=== PATIENT | male | born 1960 | race African-American/Black ===

== ENCOUNTER 2017-11-04 09:02 | Day surgery (SDC) | payer MEDICARE, MEDICAID ==
[~2017-11-04] VITALS: Ht 188 cm; Wt 73.5 kg
[~2017-11-04 09:02] MED LIST: ALLOPURINOL100 MG OR; ALLOPURINOL100 MG PO; BACTRIM DS1 TAB PO; CELEBREX200 MG PO; COLCHICINE PO; COLCRYS0.6 MG OR; DOXYCYC MONO100 MG OR; ENALAPRIL5 MG PO; EXCEDRIN PM PO; GOODY S PO; KEFLEX500 MG OR; LOMOTIL2.5 MG PO; LORTAB 10 OR; LORTAB 1010 MG PO; MELOXICAM7.5 MG PO; NO MEDS; OMEPRAZOLE40 MG PO; PROTONIX40 M2 PO; TRAMADOL HCL50 MG PO; [UNRECOGNIZED DRUG - OTHER] PO
[2017-11-04] MEDS ORDERED: PERCOCET 10/31 COMBO PO (15:05)
[2017-11-04 15:40] VITALS: BP 163/98
== END 2017-11-04 13:35 | disposition home or self-care (01) ==
LOC: ORM 09:02
PROVIDERS: ATTEND Orthopaedic Surgery
PROC: 0LQ24ZZ Repair Left Shoulder Tendon, Percutaneous Endoscopic Approach (ICD-10-PCS; principal; 2017-11-04)
PROC: 0LS24ZZ Reposition Left Shoulder Tendon, Percutaneous Endoscopic Approach (ICD-10-PCS; 2017-11-04)
PROC: 0RNK4ZZ Release Left Shoulder Joint, Percutaneous Endoscopic Approach (ICD-10-PCS; 2017-11-04)
DX: M75.122 Complete rotator cuff tear or rupture of left shoulder, not specified as traumatic (principal); M75.52 Bursitis of left shoulder; M94.212 Chondromalacia, left shoulder; S43.432A Superior glenoid labrum lesion of left shoulder, initial encounter; S46.212A Strain of muscle, fascia and tendon of other parts of biceps, left arm, initial encounter; K21.9 Gastro-esophageal reflux disease without esophagitis; I10 Essential (primary) hypertension; M10.9 Gout, unspecified; F17.210 Nicotine dependence, cigarettes, uncomplicated; X58.XXXA Exposure to other specified factors, initial encounter; Z86.73 Personal history of transient ischemic attack (TIA), and cerebral infarction without residual deficits
CPT/HCPCS: J2710

== ENCOUNTER 2018-02-16 10:49 | Emergency (ER) | payer MEDICARE, MEDICAID ==
[~2018-02-16] VITALS: Ht 188 cm; Wt 75.0 kg
[~2018-02-16 10:49] MED LIST changes: +PERCOCET 10/31 COMBO PO
[2018-02-16 11:55] LABS: HEMATOCRIT 44.6 % (39.0-50.0); HEMOGLOBIN 14.2 g/dl (14.0-18.0); IMMATURE GRANULOCYTES 0.3 % (0.0-1.0); MEAN CELL VOLUME 90.5 fL CALC (80.0-100.0); MEAN CORPUSCULAR HGB 28.8 pG CALC (26.0-32.0); MEAN CORPUSCULAR HGB CONC 31.8 g/L CALC (32.0-36.0); NEUT# 4.14 thou/uL (1.82-7.42); RED BLOOD COUNT 4.93 mill/uL (4.70-6.10); RED CELL DISTRI WIDTH 13.4 % (11.5-15.5)
[2018-02-16 12:03] LABS: ANION GAP 17 (6-22 (CALC)); BUN 22 mg/dL (9-20); BUN/CREATININE RATIO 18 (12-20 (CALC)); CARBON DIOXIDE 26 mmol/l (22-30); CHLORIDE 106 mmol/l (95-108); CREATININE 1.3 mg/dL (0.7-1.3); GFR 57 ML/MIN (>=60 (CALC)); GFR FOR AFR.AMER. > 60 ML/MIN (>=60 (CALC)); POTASSIUM 4.3 mmol/l (3.5-5.1); SODIUM 145 mmol/l (137-146)
[2018-02-16 13:03] VITALS: BP 152/90
== END 2018-02-16 13:03 | disposition short-term general hospital (02) ==
LOC: ED 10:49
PROVIDERS: Family Medicine
DX: I49.3 Ventricular premature depolarization (principal); I10 Essential (primary) hypertension; R20.2 Paresthesia of skin; R94.31 Abnormal electrocardiogram [ECG] [EKG]; R61 Generalized hyperhidrosis

== ENCOUNTER 2018-12-27 15:24 | Emergency (ER) | payer MEDICARE, MEDICAID ==
[~2018-12-27] VITALS: Ht 188 cm; Wt 74.0 kg
[2018-12-27] MEDS ORDERED: ENALAPRIL20 MG PO (15:53)
[2018-12-27 16:00] VITALS: BP 118/73
== END 2018-12-27 16:00 | disposition home or self-care (01) ==
LOC: ED 15:24
DX: S61.211A Laceration without foreign body of left index finger without damage to nail, initial encounter (principal); I10 Essential (primary) hypertension; W29.3XXA Contact with powered garden and outdoor hand tools and machinery, initial encounter; Y93.H2 Activity, gardening and landscaping; Y92.007 Garden or yard of unspecified non-institutional (private) residence as the place of occurrence of the external cause

== ENCOUNTER 2019-01-02 09:51 | Emergency (ER) | payer MEDICARE ==
[~2019-01-02] VITALS: Ht 188 cm; Wt 90.0 kg
[~2019-01-02 09:51] MED LIST changes: +ENALAPRIL20 MG PO
[2019-01-02] MEDS ORDERED: ASPIRIN 8181 MG PO (10:15)
[2019-01-02 10:16] LABS: HEMOGLOBIN 15.3 g/dl (14.0-18.0); IMMATURE GRANULOCYTES 0.2 % (0.0-5.0); MEAN CORPUSCULAR HGB 29.3 pG CALC (26.0-32.0); MEAN CORPUSCULAR HGB CONC 32.6 g/L CALC (32.0-36.0); NEUT# 6.24 thou/uL (1.82-7.42); RED BLOOD COUNT 5.22 mill/uL (4.70-6.10); RED CELL DISTRI WIDTH 13.3 % (11.5-15.5)
[2019-01-02 10:27] LABS: ANION GAP 16 (6-22 (CALC)); BUN 19 mg/dL (9-20); BUN/CREATININE RATIO 18 (12-20 (CALC)); CARBON DIOXIDE 25 mmol/l (22-30); CHLORIDE 104 mmol/l (95-108); GFR > 60 ML/MIN (>=60 (CALC)); GFR FOR AFR.AMER. > 60 ML/MIN (>=60 (CALC)); SODIUM 141 mmol/l (137-146)
[2019-01-02 12:02] VITALS: BP 138/98
== END 2019-01-02 12:09 | disposition left against medical advice (07) ==
LOC: ED 09:51
PROVIDERS: Family Medicine
DX: R07.9 Chest pain, unspecified (principal); R94.31 Abnormal electrocardiogram [ECG] [EKG]; I10 Essential (primary) hypertension; F17.200 Nicotine dependence, unspecified, uncomplicated; Z91.19 Patient's noncompliance with other medical treatment and regimen

== ENCOUNTER 2019-03-08 12:40 | Emergency (ER) | payer OTHER, MEDICARE, MEDICAID ==
[~2019-03-08] VITALS: Ht 188 cm; Wt 75.0 kg
[~2019-03-08 12:40] MED LIST changes: +ASPIRIN 8181 MG PO
[2019-03-08] MEDS ORDERED: AMLODIPINE5 MG PO (14:17)
[2019-03-08] MEDS ORDERED: FLEXERIL PO (14:21)
[2019-03-08] MEDS ORDERED: TORADOL PO (14:21)
[2019-03-08 14:25] VITALS: BP 139/74
== END 2019-03-08 14:25 | disposition home or self-care (01) | DRG 552 ==
LOC: ED 12:40
DX: S16.1XXA Strain of muscle, fascia and tendon at neck level, initial encounter (principal); I10 Essential (primary) hypertension; F17.200 Nicotine dependence, unspecified, uncomplicated; V52.5XXA Driver of pick-up truck or van injured in collision with two- or three-wheeled motor vehicle in traffic accident, initial encounter

== ENCOUNTER 2019-09-04 07:59 | Day surgery (SDC) | payer MEDICARE, MEDICAID ==
[~2019-09-04] VITALS: Ht 188 cm; Wt 73.9 kg
[~2019-09-04 07:59] MED LIST changes: +AMLODIPINE5 MG PO; +ENALAPRIL10 MG PO; +FLEXERIL PO; +FLORASTOR250 M1 PO; +NORVASC PO; +TIZANIDINE HCL4 M1 PO; +TORADOL PO
[2019-09-04 08:27] LABS: BARBITURATES NEGATIVE (NEGATIVE); COCAINE NEGATIVE (NEGATIVE); METHADONE NEGATIVE (NEGATIVE); OXCYCODONE NEGATIVE (NEGATIVE); TETRAHYDROCANNABIONOL POSITIVE (NEGATIVE); TRICYLIC ANTIDEPRESSANTS NEGATIVE (NEGATIVE)
[2019-09-04 09:30] LABS: ALBUMIN 4.4 g/dL (3.2-5.0); ALKALINE PHOSPHATASE 53 u/l (38-126); ANION GAP 11 (6-22 (CALC)); BUN 15 mg/dL (9-20); BUN/CREATININE RATIO 15 (12-20 (CALC)); CARBON DIOXIDE 29 mmol/l (22-30); CHLORIDE 103 mmol/l (95-108); GFR > 60 ML/MIN (>=60 (CALC)); GFR FOR AFR.AMER. > 60 ML/MIN (>=60 (CALC)); POTASSIUM 4.1 mmol/l (3.5-5.1); SGOT/AST 23 u/l (17-59); SODIUM 139 mmol/l (137-146); TOTAL PROTEIN 7.2 g/dL (6.3-8.2)
[2019-09-04 09:32] LABS: BILIRUBIN, TOTAL 0.8 mg/dL (0.0-1.4)
[2019-09-04 10:28] VITALS: BP 151/90
== END 2019-09-04 10:56 | disposition home or self-care (01) ==
LOC: ENDO 07:59
PROVIDERS: ATTEND Surgery
PROC: 0DJD8ZZ Inspection of Lower Intestinal Tract, Via Natural or Artificial Opening Endoscopic (ICD-10-PCS; principal; 2019-09-04)
DX: Z12.11 Encounter for screening for malignant neoplasm of colon (principal); I10 Essential (primary) hypertension

== ENCOUNTER 2020-11-20 16:45 | Observation (INO) | payer MEDICARE ==
[~2020-11-20] VITALS: Ht 188 cm; Wt 73.7 kg
--- NOTE | 2020-11-20 16:50 | NUR ---
PT TO ROOM # 15 FOR BEDSIDE TRIAGE
[2020-11-20 17:35] LABS: HEMATOCRIT 47.2 % (39.0-50.0); IMMATURE GRANULOCYTES 0.3 % (0.0-5.0); MEAN CELL VOLUME 87.7 fL CALC (80.0-100.0); MEAN CORPUSCULAR HGB 27.9 pG CALC (26.0-32.0); MEAN CORPUSCULAR HGB CONC 31.8 g/dL CAL (32.0-36.0); NEUT# 6.4 thou/uL (1.82-7.42); RED BLOOD COUNT 5.38 mill/uL (4.70-6.10); RED CELL DISTRI WIDTH 13.6 % (11.5-15.5)
[2020-11-20 17:53] LABS: ACT PARTIAL THROMBO TIME 26.8 SECONDS (20.0-32.5); PROTHROMBIN TIME 9.5 SECONDS (9.0-12.5)
[2020-11-20 17:57] LABS: ALBUMIN 4.7 g/dL (3.2-5.0); ALKALINE PHOSPHATASE 51 u/l (38-126); AMYLASE 92 u/l (30-110); ANION GAP 11 (6-22 (CALC)); BUN 19 mg/dL (8-23); BUN/CREATININE RATIO 16 (12-20 (CALC)); CARBON DIOXIDE 28 mmol/l (22-30); CHLORIDE 102 mmol/l (95-108); CREATININE 1.2 mg/dL (0.7-1.3); ETHYL ALCOHOL 0 mg/dl (0-30); GFR > 60 ML/MIN (>=60 (CALC)); GFR FOR AFR.AMER. > 60 ML/MIN (>=60 (CALC)); LIPASE 71 u/l (23-300); POTASSIUM 4.2 mmol/l (3.5-5.1); SODIUM 136 mmol/l (137-146); TOTAL PROTEIN 8.8 g/dL (6.3-8.2)
[2020-11-20 18:01] LABS: SGOT/AST 51 u/l (19-48)
--- NOTE | 2020-11-20 18:10 | NUR ---
MD AT BEDSIDE TO DISCUSS RESULTS AND POC.
[2020-11-20] MEDS ORDERED: AMLODIPINE BESYL5 MG PO (18:11)
[2020-11-20] MEDS ORDERED: PRAVASTATIN SOD20 MG PO (18:12)
--- NOTE | 2020-11-20 18:17 | NUR ---
SBAR PRINTED TO FLOOR
--- NOTE | 2020-11-20 18:27 | NUR ---
COVID SWAB COLLECTED, ISOLATION PRECAUTIONS INITIATED.
--- NOTE | 2020-11-20 18:47 | NUR ---
REPORT GIVEN TO ANTONY MCKAY.
--- NOTE | 2020-11-20 19:05 | NUR ---
W/D SKIN DENIES CP NO SWEATS NO NAUSEA NO SOB.
--- NOTE | 2020-11-20 19:50 | NUR ---
PHONE REPORT TO NEEL MCKAY ON MS
--- NOTE | 2020-11-20 19:55 | NUR ---
PT TRANSPORTED VIA WC ON TELE IN STABLE PAINFREE CONDITION
[2020-11-20 20:16] VITALS: BP 123/79
--- NOTE | 2020-11-20 21:10 | NUR ---
PATIENT ADMITTED FROM ER VIA WHEELCHAIR WITH ER STAFF IN ATTENDANCE. PATIENT IS ABLE TO TRANSFER TO BED WITH STEADY GAIT. AWAKE ALERT AND ORIENTEDX3. PATIENT ADMITTED FOR CHEST PAIN BUT DENIES ANY CHEST PAIN AT THIS TIME. NO SOB OR PALPATATIONS. TELE MONITOR IN PLACE. SALINE LOCK TO RAC INTACT-IVF NS HUNG AND INFUSING AT 50CC/HR. PATIENT ORIENTED TO ROOM AND SURROUNDINGS. INSTRUCTED ON USE OF NURSE CALL LIGHT SYSTEM, TV REMOTE AND PHONE. PATIENT PROVIDED WITH MICROWAVE MEAL AND DRINK, SAFETY PRECAUTIONS REINFORCED. CALL LIGHT IN REACH, WILL CONT TO MONITOR.
--- NOTE | 2020-11-20 23:45 | NUR ---
PATIENT RESTING IN BED-URINE SPEC OBTAINED AND SENT TO LAB. TELE MONITOR IN PLACE. IVF PATENT AND INFUSING VIA RAC AT 50CC/HR. 0000 TROP TO BE DRAWN SHORTLY. SAFETY PRECAUTIONS REINFORCED. CALL LIGHT IN REACH. WILL CONT TO MONITOR.
[2020-11-20 23:55] LABS: URINE BLOOD DIPSTICK SMALL (NEGATIVE); URINE COLOR YELLOW; URINE GLUCOSE - DIPSTICK NEGATIVE (NEGATIVE); URINE KETONE 15 mg/dL (NEGATIVE); URINE LEUK ESTERASE NEGATIVE (NEGATIVE); URINE NITRITE - DIPSTICK NEGATIVE (Negative); URINE PROTEIN - DIPSTICK TRACE mg/dL (NEG-TRACE); URINE SPECIFIC GRAVITY >=1.030; URINE UROBILINOGEN - DIPSTICK 0.2 E.U./dL (0.2)
[2020-11-21] VITALS: BP 109/64
[2020-11-21 00:04] LABS: URINE BILIRUBIN - DIPSTICK NEGATIVE (NEGATIVE)
[2020-11-21 00:11] LABS: URINE MUCUS MANY hpf (NONE-FEW); URINE SQUAMOUS EPITHELIAL CELL FEW EPI/hpf (0-FEW); URINE WBC 0-2 WBC/hpf (0-5)
--- NOTE | 2020-11-21 03:52 | NUR ---
PATIENT APPEARS SLEEPING AT THIS TIME WITGH EYES CLOSED. RESPS ARE EVEN AND UNLABORED. TELE MONITOR IN PLACE. IVF NS PATENT AND INFUSING VIA RAC SITE. CALL LIGHT IN REACH. WILL CONT TO MONITOR.
[2020-11-21 04:00] VITALS: BP 107/62
[2020-11-21 06:33] LABS: HEMATOCRIT 41.7 % (39.0-50.0); HEMOGLOBIN 13.3 g/dl (14.0-18.0); IMMATURE GRANULOCYTES 0.6 % (0.0-5.0); MEAN CELL VOLUME 88.9 fL CALC (80.0-100.0); MEAN CORPUSCULAR HGB 28.4 pG CALC (26.0-32.0); MEAN CORPUSCULAR HGB CONC 31.9 g/dL CAL (32.0-36.0); NEUT# 3.58 thou/uL (1.82-7.42); RED BLOOD COUNT 4.69 mill/uL (4.70-6.10); RED CELL DISTRI WIDTH 13.7 % (11.5-15.5)
[2020-11-21 06:47] LABS: ANION GAP 10 (6-22 (CALC)); BUN 19 mg/dL (8-23); BUN/CREATININE RATIO 17 (12-20 (CALC)); CALCULATED LDLCHOLESTEROL 52 mg/dL (62-129 (CALC)); CARBON DIOXIDE 28 mmol/l (22-30); CHLORIDE 102 mmol/l (95-108); CHOLESTEROL HDL RATIO 1.8 (<4.4 (CALC)); CREATININE 1.1 mg/dL (0.7-1.3); GFR > 60 ML/MIN (>=60 (CALC)); GFR FOR AFR.AMER. > 60 ML/MIN (>=60 (CALC)); HDL CHOLESTEROL 93 mg/dL (>=40); POTASSIUM 3.8 mmol/l (3.5-5.1); SODIUM 137 mmol/l (137-146); TOTAL CHOLESTEROL 167 mg/dl (0-199); TOTAL TRIGLYCERIDES 112 mg/dl (30-149); VLDL CHOLESTROL 22 mg/dl (4-45 (CALC))
[2020-11-21 07:20] VITALS: BP 120/73
--- NOTE | 2020-11-21 07:20 | NUR ---
PATIENT LAYING IN BED ALERT AND ORIENTED AT THIS TIME DENIES ANY CHEST PAIN OR OTHER PAIN AT THIS TIME CALL LIGHT WITHIN REACH SIDERAILS UP X [address] CORRECTIONAL NURSE DONE SEE INTERVENTIONS
[2020-11-21 10:30] VITALS: BP 118/68
--- NOTE | 2020-11-21 12:15 | NUR ---
PATIENT SITTING UP AT BEDSIDE EATING LUNCH AT THIS TIME. DENIES ANY NEEDS. DR. CALLAWAY IN CURRENTLY TO SEE PATIENT FOR ROUNDS. CALL LIGHT WITHIN REACH TELE MONITOR IN PLACE
--- NOTE | 2020-11-21 14:53 | NUR ---
Discharge instructions given. Patient verbalizes understanding of same. Discharged in stable condition via Ambulatory to with *Other. All belongings sent with pt. PATIENT VERBALIZES UNDERSTANDING OF D/C INSTRUCTIONS.
== END 2020-11-21 14:55 | disposition home or self-care (01) ==
LOC: ED 16:45 → ED-I 18:04 → ED 18:20 → MS2 18:21
PROVIDERS: ADMIT Internal Medicine; ATTEND Internal Medicine
DX: R07.9 Chest pain, unspecified (principal); R82.5 Elevated urine levels of drugs, medicaments and biological substances; I10 Essential (primary) hypertension; E78.5 Hyperlipidemia, unspecified; M10.9 Gout, unspecified; M19.90 Unspecified osteoarthritis, unspecified site; R20.0 Anesthesia of skin; F17.200 Nicotine dependence, unspecified, uncomplicated; Z20.828 Contact with and (suspected) exposure to other viral communicable diseases
CPT/HCPCS: J1650

== ENCOUNTER 2022-01-10 08:07 | Emergency (ER) | payer MEDICARE ==
[~2022-01-10] VITALS: Ht 188 cm; Wt 77.2 kg
[~2022-01-10 08:07] MED LIST changes: +AMLODIPINE BESYL5 MG PO; +PRAVASTATIN SOD20 MG PO
[2022-01-10] MEDS ORDERED: ASPIRIN81 MG PO (08:26)
[2022-01-10 08:39] LABS: HEMATOCRIT 48.1 % (39.0-50.0); HEMOGLOBIN 15.4 g/dl (14.0-18.0); IMMATURE GRANULOCYTES 0.2 % (0.0-5.0); MEAN CELL VOLUME 90.8 fL CALC (80.0-100.0); MEAN CORPUSCULAR HGB 29.1 pG CALC (26.0-32.0); NEUT# 4.08 thou/uL (1.82-7.42); RED BLOOD COUNT 5.3 mill/uL (4.70-6.10); RED CELL DISTRI WIDTH 13.3 % (11.5-15.5)
[2022-01-10 08:52] LABS: ALBUMIN 4.5 g/dL (3.2-5.0); ALKALINE PHOSPHATASE 55 u/l (38-126); ANION GAP 12 (6-22 (CALC)); BILIRUBIN, TOTAL 0.7 mg/dL (0.0-1.4); BUN 11 mg/dL (8-23); BUN/CREATININE RATIO 10 (12-20 (CALC)); CARBON DIOXIDE 30 mmol/l (22-30); CHLORIDE 101 mmol/l (95-108); CREATININE 1.1 mg/dL (0.7-1.3); GFR > 60 ML/MIN (>=60 (CALC)); GFR FOR AFR.AMER. > 60 ML/MIN (>=60 (CALC)); POTASSIUM 4.3 mmol/l (3.5-5.1); SGOT/AST 27 u/l (19-48); SODIUM 139 mmol/l (137-146); TOTAL PROTEIN 7.8 g/dL (6.3-8.2)
[2022-01-10 09:07] LABS: URINE BILIRUBIN - DIPSTICK NEGATIVE (NEGATIVE); URINE BLOOD DIPSTICK SMALL (NEGATIVE); URINE COLOR YELLOW; URINE GLUCOSE - DIPSTICK NEGATIVE (NEGATIVE); URINE KETONE NEGATIVE (NEGATIVE); URINE LEUK ESTERASE NEGATIVE (NEGATIVE); URINE PROTEIN - DIPSTICK NEGATIVE (NEG-TRACE); URINE SPECIFIC GRAVITY 1.015; URINE UROBILINOGEN - DIPSTICK 0.2 E.U./dL (0.2)
[2022-01-10 09:08] LABS: URINE NITRITE - DIPSTICK NEGATIVE (Negative)
[2022-01-10] MEDS ORDERED: LISINOPRIL40 MG PO (09:36)
[2022-01-10 09:47] VITALS: BP 169/97
== END 2022-01-10 09:48 | disposition home or self-care (01) ==
LOC: ED 08:07
PROVIDERS: Family Medicine
DX: I10 Essential (primary) hypertension (principal); E78.5 Hyperlipidemia, unspecified; M10.9 Gout, unspecified; F17.200 Nicotine dependence, unspecified, uncomplicated

== ENCOUNTER 2022-07-02 06:51 | Emergency (ER) | payer MEDICARE ==
[~2022-07-02] VITALS: Ht 188 cm; Wt 73.4 kg
[2022-07-02] VITALS (7 sets, daily range): BP systolic 150–171; BP diastolic 88–109
[~2022-07-02 06:51] MED LIST changes: +ASPIRIN81 MG PO; +LISINOPRIL40 MG PO
[2022-07-02 07:42] LABS: HEMATOCRIT 46.5 % (39.0-50.0); HEMOGLOBIN 14.8 g/dl (14.0-18.0); IMMATURE GRANULOCYTES 0.2 % (0.0-5.0); MEAN CELL VOLUME 90.6 fL CALC (80.0-100.0); MEAN CORPUSCULAR HGB 28.8 pG CALC (26.0-32.0); MEAN CORPUSCULAR HGB CONC 31.8 g/dL CAL (32.0-36.0); NEUT# 2.63 thou/uL (1.82-7.42); RED BLOOD COUNT 5.13 mill/uL (4.70-6.10); RED CELL DISTRI WIDTH 12.9 % (11.5-15.5)
[2022-07-02 07:54] LABS: ALKALINE PHOSPHATASE 51 u/l (38-126); ANION GAP 11 (6-22 (CALC)); BUN 13 mg/dL (8-23); BUN/CREATININE RATIO 13 (12-20 (CALC)); CARBON DIOXIDE 26 mmol/l (22-30); CHLORIDE 106 mmol/l (95-108); GFR FOR AFR.AMER. > 60 ML/MIN (>=60 (CALC)); GFR OTHER RACES > 60 ML/MIN (>=60 (CALC)); POTASSIUM 4.2 mmol/l (3.5-5.1); SGOT/AST 35 u/l (19-48); SODIUM 139 mmol/l (137-146); TOTAL PROTEIN 7.4 g/dL (6.3-8.2)
[2022-07-02 07:56] LABS: BILIRUBIN, TOTAL 0.3 mg/dL (0.0-1.4)
== END 2022-07-02 10:18 | disposition home or self-care (01) ==
LOC: ED 06:51
PROVIDERS: Family Medicine
DX: R51.9 Headache, unspecified (principal); I10 Essential (primary) hypertension; M10.9 Gout, unspecified; F17.210 Nicotine dependence, cigarettes, uncomplicated

== ENCOUNTER 2024-11-11 01:07 | Emergency (ER) | payer MEDICARE ==
[2024-11-11] VITALS (7 sets, daily range): BP systolic 110–137; BP diastolic 67–86
[~2024-11-11] VITALS: Ht 188 cm; Wt 75.0 kg
[2024-11-11 01:50] LABS: BASO% 0.4 % (0-3); HEMATOCRIT 41.7 % (39.0-50.0); HEMOGLOBIN 13.1 g/dl (14.0-18.0); IMMATURE GRANULOCYTES 0.6 % (0.0-5.0); LYMPH% 39.5 % (15-41); MEAN CORPUSCULAR HGB 28.6 pG CALC (26.0-32.0); MEAN CORPUSCULAR HGB CONC 31.4 g/dL CAL (32.0-36.0); NEUT# 3.38 thou/uL (1.82-7.42); NEUT% 48.5 % (42-76); RED BLOOD COUNT 4.58 mill/uL (4.70-6.10); RED CELL DISTRI WIDTH 13.9 % (11.5-15.5)
[2024-11-11 01:52] LABS: URINE BILIRUBIN - DIPSTICK Negative (NEGATIVE); URINE BLOOD DIPSTICK Trace-lysed (NEGATIVE); URINE GLUCOSE - DIPSTICK Negative (NEGATIVE); URINE KETONE Negative (NEGATIVE); URINE LEUK ESTERASE Negative (NEGATIVE); URINE NITRITE - DIPSTICK Negative (Negative); URINE PH 5.5 (4.5-8.0); URINE PROTEIN - DIPSTICK 30 mg/dL (NEG-TRACE); URINE SPECIFIC GRAVITY >=1.030; URINE UROBILINOGEN - DIPSTICK 0.2 E.U./dL (0.2)
[2024-11-11 01:53] LABS: URINE COLOR Yellow
[2024-11-11 01:57] LABS: URINE BACTERIA FEW hpf; URINE EPITHELIAL CELLS FEW EPI/hpf (0-FEW); URINE MUCUS MODERATE hpf (NONE-FEW); URINE WBC 0-2 WBC/hpf (0-5)
[2024-11-11 02:12] LABS: BILIRUBIN, TOTAL 0.3 mg/dL (0.2-1.3); CREATININE 1.2 mg/dL (0.7-1.3); MAGNESIUM 1.9 mg/dL (1.6-2.3); POTASSIUM 3.5 mmol/l (3.5-5.1); TOTAL PROTEIN 6.6 g/dL (6.3-8.2)
[2024-11-11] MEDS ORDERED: TAMSULOSIN0.4 MG PO (02:45)
== END 2024-11-11 03:07 | disposition home or self-care (01) ==
LOC: ED 01:07
PROVIDERS: Family Medicine
DX: R42 Dizziness and giddiness (principal); R35.0 Frequency of micturition; I10 Essential (primary) hypertension; F17.210 Nicotine dependence, cigarettes, uncomplicated

== ENCOUNTER 2024-11-28 10:36 | Emergency (ER) | payer MEDICARE ==
[~2024-11-28] VITALS: Ht 188 cm; Wt 74.0 kg
[2024-11-28] VITALS (23 sets, daily range): BP systolic 119–151; BP diastolic 68–115
[~2024-11-28 10:36] MED LIST changes: +TAMSULOSIN0.4 MG PO
[2024-11-28 11:39] LABS: URINE BILIRUBIN - DIPSTICK Negative (NEGATIVE); URINE BLOOD DIPSTICK Trace-intact (NEGATIVE); URINE GLUCOSE - DIPSTICK Negative (NEGATIVE); URINE KETONE Negative (NEGATIVE); URINE LEUK ESTERASE Negative (NEGATIVE); URINE NITRITE - DIPSTICK Negative (Negative); URINE PROTEIN - DIPSTICK Negative (NEG-TRACE)
[2024-11-28 11:45] LABS: URINE COLOR Yellow
[2024-11-28] MEDS ORDERED: MORPHINE SULFATE 4 MG/ML VIAL IV STA (12:11)
[2024-11-28 12:46] LABS: BASO% 0.2 % (0-3); EOS% 0.1 % (0-8); HEMATOCRIT 44.5 % (39.0-50.0); HEMOGLOBIN 14.5 g/dl (14.0-18.0); IMMATURE GRANULOCYTES 0.2 % (0.0-5.0); LYMPH% 8.9 % (15-41); MEAN CELL VOLUME 89.9 fL CALC (80.0-100.0); MEAN CORPUSCULAR HGB 29.3 pG CALC (26.0-32.0); MEAN CORPUSCULAR HGB CONC 32.6 g/dL CAL (32.0-36.0); MONO% 6.1 % (2-13); NEUT# 8.04 thou/uL (1.82-7.42); NEUT% 84.5 % (42-76); RED BLOOD COUNT 4.95 mill/uL (4.70-6.10); RED CELL DISTRI WIDTH 13.2 % (11.5-15.5)
[2024-11-28 14:35] LABS: ALBUMIN 4.5 g/dL (3.2-5.0); BILIRUBIN, TOTAL 0.5 mg/dL (0.2-1.3); POTASSIUM 4.5 mmol/l (3.5-5.1); TOTAL PROTEIN 7.5 g/dL (6.3-8.2)
[2024-11-28] MEDS ORDERED: TYLENOL500 MG PO (15:59)
[2024-11-28] MEDS ORDERED: COLACE100 MG PO (15:59)
== END 2024-11-28 16:15 | disposition home or self-care (01) ==
LOC: ED 10:36
PROVIDERS: Emergency Medicine
DX: K59.00 Constipation, unspecified (principal); K57.30 Diverticulosis of large intestine without perforation or abscess without bleeding; M25.532 Pain in left wrist; I10 Essential (primary) hypertension; F17.200 Nicotine dependence, unspecified, uncomplicated